=== PATIENT | female | born 1985 | race Native Hawaiian/Other Pacific Islander ===

== ENCOUNTER 2018-08-05 18:43 | Emergency (ER) | payer BC ==
[~2018-08-05] VITALS: Ht 160 cm; Wt 106.1 kg
[2018-08-05 19:43] LABS: PLATELET COUNT 273 K/uL (152-353)
[2018-08-05 19:54] LABS: POTASSIUM 3.5 mmol/L (3.6-5.2)
[2018-08-05 21:02] VITALS: BP 115/66; TEMP 98.8
== END 2018-08-05 20:55 | disposition home or self-care (01) ==
LOC: ED 18:43
PROVIDERS: Emergency Medicine
DX: K52.9 Noninfective gastroenteritis and colitis, unspecified (principal)
CPT/HCPCS: 36415; 80053; 85027; 87502; 96360; 96375; 99284; J2405

== ENCOUNTER 2019-06-17 08:55 | Outpatient (CLI) | payer OTHER | END 2019-06-17 22:39 | disposition home or self-care (01) | LOC: US 08:55 | DX: R74.8 Abnormal levels of other serum enzymes (principal); E78.5 Hyperlipidemia, unspecified; I10 Essential (primary) hypertension; K21.9 Gastro-esophageal reflux disease without esophagitis ==

== ENCOUNTER 2019-10-14 14:45 | Outpatient (CLI) | payer OTHER | END 2019-10-14 19:00 | disposition home or self-care (01) | LOC: RESP 14:45 | DX: J32.9 Chronic sinusitis, unspecified (principal); R00.2 Palpitations | CPT/HCPCS: 93005 ==

== ENCOUNTER 2020-01-26 14:47 | Outpatient (CLI) | payer OTHER | END 2020-01-26 23:39 | disposition home or self-care (01) | LOC: RAD 14:47 | DX: M79.605 Pain in left leg (principal) ==

== ENCOUNTER 2020-06-12 00:24 | Observation (INO) | payer OTHER ==
[~2020-06-12] VITALS: Ht 160 cm; Wt 115.2 kg
[2020-06-12] VITALS (9 sets, daily range): BP systolic 99–144; BP diastolic 60–87; TEMP 98–98.4; Ht 160 cm; Wt 115.2 kg
[2020-06-12 01:00] LABS: PLATELET COUNT 274 K/uL (152-353)
[2020-06-12 01:08] LABS: POTASSIUM 3.2 mmol/L (3.6-5.2); SODIUM 142 mmol/L (136-145)
[2020-06-12] MEDS ORDERED: LISI10TA11 PO (14:48)
[2020-06-12] MEDS ORDERED: MOBIC15 MG PO (14:48)
[2020-06-12] MEDS ORDERED: PROM25TA52 PO (14:50)
[2020-06-12] MEDS ORDERED: ROPI5T PO (14:52)
[2020-06-12] MEDS ORDERED: BUSPIRONE10 MG PO (14:53)
[2020-06-12] MEDS ORDERED: OMEPRAZOLE40 MG PO (14:54)
[2020-06-12] MEDS ORDERED: CITALOPRAM20 M1 PO (14:54)
[2020-06-12] MEDS ORDERED: FENOFIBRATE43 MG PO (14:55)
[2020-06-12] MEDS ORDERED: EZETIMIBE10 MG PO (14:56)
[2020-06-13 04:19] VITALS: BP 103/62; TEMP 98.1
[2020-06-13 05:15] LABS: PLATELET COUNT 255 K/uL (152-353)
[2020-06-13 05:50] LABS: POTASSIUM 4.1 mmol/L (3.6-5.2)
[2020-06-13 07:59] VITALS: BP 111/69; TEMP 98.1
[2020-06-13 12:00] VITALS: BP 117/64; TEMP 98.6
== END 2020-06-13 13:45 | disposition home or self-care (01) ==
LOC: ED 00:24 → MED/SURG 01:40
PROVIDERS: ADMIT Hospitalist; ATTEND Internal Medicine Endocrinology, Diabetes & Metabolism
DX: R07.89 Other chest pain (principal); E66.01 Morbid (severe) obesity due to excess calories; K21.9 Gastro-esophageal reflux disease without esophagitis; E78.49 Other hyperlipidemia; I10 Essential (primary) hypertension; R06.02 Shortness of breath
CPT/HCPCS: 36415; 80048; 80053; 82550; 83880; 84484; 85027; 85379; 85610; 85730; 87635; 93005; 96372; 96374; 96375; 99220; 99284; G0378; J1650; J2270; J2405; U0003